=== PATIENT | female | born 1990 | race Caucasian/White ===

== ENCOUNTER 2022-11-30 01:10 | Inpatient (IN) | payer OTHER, SELFPAY ==
[2022-11-30] VITALS (229 sets, daily range): BP systolic 75–149; BP diastolic 48–101; PULSE 70–145; RESP 18; TEMP 36.6–37.7; O2SAT 95–100; BMI 29.2
[2022-11-30 04:09] LABS: Basophils Absolute Auto 0.1 K/mm3 (0.0-0.1); Basophils Percent Auto 0.6 % (0.2-1.2); Eosinophils Absolute Auto 0.1 K/mm3 (0-0.3); Eosinophils Percent Auto 0.8 % (0-4.4); Hematocrit 33.6 % (37.0-47.0); Hemoglobin 11.3 g/dL (12.0-15.0); Immature Granulocyte Absolute 0.16 K/mm3 (0.00-0.031); Immature Granulocyte Percent A 1.2 % (0-0.5); Lymphocytes Absolute Auto 3.02 K/mm3 (0.9-3.2); Lymphocytes Percent Auto 22.7 % (18.3-44.2); Mean Corpuscular HGB Conc 33.6 g/dl (32-36); Mean Corpuscular Hemoglobin 31.6 pg (26-34); Mean Corpuscular Volume 93.9 fl (80-100); Mean Platelet Volume 10.4 fl (7.4-10.4); Monocytes Absolute Auto 0.9 K/mm3 (0.1-0.6); Monocytes Percent Auto 6.9 % (2.6-8.5); Neutrophils Percent Auto 67.8 % (45.5-73.1); Platelet Count Result 230 k/mm3 (150-375); Red Blood Count 3.58 M/mm3 (4.2-5.4); Red Cell Distribution Width 14.2 % (11.5-14.5); White Blood Count 13.3 K/mm3 (4.5-10.0)
--- NOTE | 2022-11-30 04:49 | WPDANESEPP ---
Anes - Eval Pre Procedure Procedure: Labor epidural Date/Time: 11/30/22 04:49 Surgeon: Anny Preop Diagnosis: Abd pain with contractions Pre Op Diagnosis: labor Patient Data Age: 32 Gender: F Height: 1.6 m Weight: 75 kg Last Vital Signs Pulse 83 11/30/22 03:15 BP 129/87 11/30/22 03:15 Allergies Allergy/AdvReac Type Severity Reaction Status Date / Time cranberry Allergy Swelling Verified 10/31/22 14:26 Home Medications Medication Instructions Recorded Confirmed Type prenat.vits,asha,[id number] 1 tablet PO DAILY 10/31/22 10/31/22 History Laboratory Tests 11/30/22 11/30/22 03:59 03:59 WBC 13.3 K/mm3 H K/mm3 (4.5-10.0) RBC 3.58 M/mm3 L M/mm3 (4.2-5.4) Hgb 11.3 g/dL L g/dL (12.0-15.0) Hct 33.6 % L % (37.0-47.0) MCV 93.9 fl fl (80-100) MCH 31.6 pg pg (26-34) MCHC 33.6 g/dl g/dl (32-36) RDW 14.2 % % (11.5-14.5) Plt Count 230 k/mm3 k/mm3 (150-375) MPV 10.4 fl fl (7.4-10.4) Immature Gran % (Auto) 1.2 % H % (0-0.5) Neut % (Auto) 67.8 % % (45.5-73.1) Lymph % (Auto) 22.7 % % (18.3-44.2) [place] % (Auto) 6.9 % % (2.6-8.5) Eos % (Auto) 0.8 % % (0-4.4) Baso % (Auto) 0.6 % % (0.2-1.2) Lymph # (Auto) 3.02 K/mm3 K/mm3 (0.9-3.2) [place] # (Auto) 0.9 K/mm3 H K/mm3 (0.1-0.6) Eos # (Auto) 0.1 K/mm3 K/mm3 (0-0.3) Baso # (Auto) 0.1 K/mm3 K/mm3 (0.0-0.1) Abs Immat Gran (auto) 0.16 K/mm3 H K/mm3 (0.00-0.031) Absolute Neuts (auto) 9.0 K/mm3 H K/mm3 (1.3-6.7) Absolute Nucleated RBC 0.0 K/mm3 K/mm3 (0.0-0.012) Nucleated RBC % 0.0 % % (0.0-0.2) RPR Pending Patient hx anesthesia problems: none Family hx anesthesia problems: none Results Review: All pre-operative results and documents have been reviewed as part of the pre-operative evaluation. [facility] Past Medical History Medical History (Updated 11/30/22 @ 04:50 by Gagandeep Beckford CRNA) Overweight (BMI 25.0-29.9) and not yet delivered Family History Family History Other No pertinent family history Social History Social History Smoking status: Never smoker Second hand tobacco smoke exposure: No Substance use: never Lack of Transportation: No Lack of Food: Never True Current Housing: I Have Housing Concerned About Future Housing: No Difficulty Paying Gas/Electric Bills: No Difficulty Paying for Meds: No Currently Unemployed: No Education: High School Diploma/GED Difficulty w/ Childcare or Family Care: No Spiritual care concerns: No Exam Day of Procedure 11/30/22 04:49 Patient weight: overweight Airway: Mallampati scale class II
[2022-11-30] MEDS: LACTATED RINGERS 1,000 ML 125 ML IV CONT ×2 (04:53→13:46)
[2022-11-30] MEDS: OXYTOCIN 30 UNITS/NS 500 ML 30 UNITS/500 ML BAG 6 UNITS IV CONT (07:18)
--- NOTE | 2022-11-30 08:52 | PM.IMHP ---
H&P: HPI History of Present Illness Date/Time: 11/30/22 08:52 Chief Complaint: Contractions. Narrative: 32 y/o G1 at 40 1/7 weeks here with contractions. uncomplicated. GBS neg. Contractions began last evening. Found to be in labor. Now comfortable with epidural. Review of Systems Review of Systems: All systems reviewed & are unremarkable except as noted in HPI and below PMFSH Past Medical History Medical History Overweight (BMI 25.0-29.9) and not yet delivered Family History Family History Other No pertinent family history Social History Social History Smoking status: Never smoker Second hand tobacco smoke exposure: No Substance use: never Lack of Transportation: No Lack of Food: Never True Current Housing: I Have Housing Concerned About Future Housing: No Difficulty Paying Gas/Electric Bills: No Difficulty Paying for Meds: No Currently Unemployed: No Education: High School Diploma/GED Difficulty w/ Childcare or Family Care: No Spiritual care concerns: No Meds Home Medications and Allergies Home Medications Medication Instructions Recorded Confirmed Type prenat.vits,asha,eqv-fihe-ppldd 1 tablet PO DAILY 10/31/22 10/31/22 History Allergies Allergy/AdvReac Type Severity Reaction Status Date / Time cranberry Allergy Swelling Verified 10/31/22 14:26 Vital Signs Vital Signs - 24 hr 11/30/22 03:15 11/30/22 04:56 11/30/22 05:00 Temperature Pulse Rate 83 84 Blood Pressure 129/87 121/76 Pulse Oximetry 99 11/30/22 05:01 11/30/22 05:02 11/30/22 05:03 Temperature Pulse Rate 90 86 Blood Pressure 118/83 126/84 Pulse Oximetry 99 11/30/22 05:05 11/30/22 05:06 11/30/22 05:08 Temperature Pulse Rate 80 88 Blood Pressure 125/76 137/69 Pulse Oximetry 99 11/30/22 05:10 11/30/22 05:11 11/30/22 05:13 Temperature Pulse Rate 85 81 Blood Pressure 118/75 122/72 Pulse Oximetry 99 11/30/22 05:15 11/30/22 05:16 11/30/22 05:18 Temperature Pulse Rate 82 87 Blood Pressure 122/69 123/70 Pulse Oximetry 98 11/30/22 05:20 11/30/22 05:21 11/30/22 05:23 Temperature Pulse Rate 87 91 Blood Pressure 122/68 119/65 Pulse Oximetry 98 11/30/22 05:25 11/30/22 05:26 11/30/22 05:28 Temperature Pulse Rate 91 94 Blood Pressure 118/67 118/68 Pulse Oximetry 98 11/30/22 05:30 11/30/22 05:31 11/30/22 05:33 Temperature Pulse Rate 90 95 Blood Pressure 116/66 103/58 L Pulse Oximetry 97 11/30/22 05:35 11/30/22 05:36 11/30/22 05:38 Temperature Pulse Rate 97 95 Blood Pressure 99/66 L 104/60 Pulse Oximetry 97 11/30/22 05:40 11/30/22 05:41 11/30/22 05:43 Temperature Pulse Rate 89 96 Blood Pressure 103/65 104/64 Pulse Oximetry 99 11/30/22 05:45 11/30/22 05:46 11/30/22 05:48 Temperature Pulse Rate 82 85 Blood Pressure 109/68 108/63 Pulse Oximetry 96 11/30/22 05:50 11/30/22 05:51 11/30/22 05:53 Temperature Pulse Rate 87 83 Blood Pressure 109/65 108/69 Pulse Oximetry 98 11/30/22 05:55 11/30/22 05:56 11/30/22 05:58 Temperature Pulse Rate 80 86 Blood Pressure 109/66 106/61 Pulse Oximetry 96 11/30/22 06:00 11/30/22 06:01 11/30/22 06:03 Temperature Pulse Rate 85 82 Blood Pressure 105/65 105/67 Pulse Oximetry 96 11/30/22 06:05 11/30/22 06:06 11/30/22 06:08 Temperature Pulse Rate 75 86 Blood Pressure 108/65 105/61 Pulse Oximetry 95 11/30/22 06:10 11/30/22 06:11 11/30/22 06:13 Temperature Pulse Rate 86 85 Blood Pressure 101/64 98/61 L Pulse Oximetry 98 11/30/22 06:15 11/30/22 06:16 11/30/22 06:18 Temperature Pulse Rate 81 89 Blood Pressure 106/64 102/59 L Pulse Oximetry 97 11/30/22 06:20 11/30/22 06:2
[2022-11-30 10:12] LABS: Rapid Plasma Reagin Non-Reactive (NonReactive)
--- NOTE | 2022-11-30 12:03 | PM.OBPNLAB ---
Pain Control Date/time seen: 11/30/22 12:03 Comments: Comfortable. Pelvic Exam Dilation (cm): 7 Effacement (%): 100 station: -1 Contractions Contraction frequency: 3 Status status: Category l Comments: FHR 100, good variability, excellent response to scalp stimulation. Assessment and Plan Pitocin rate (mU/min): 6 Plan: continuous present management
--- NOTE | 2022-11-30 19:01 | PM.OBPRVD ---
OB - Delivery Note Procedure Delivery date: 11/30/22 Procedure: Induction method: None Delivery augmentation: Rupture of Membranes and Pitocin Delivery monitor: External FHT, External Uterine and Internal Uterine Route of delivery: Laceration Description: Vaginal Delivery repair: vicryl (3-0) Specimen: Yes (Cord blood, placenta) Quantitative Blood Loss (ml): 85 Anesthesia type: Epidural Disposition: PACU Complications: None Narrative: 32 y/o G1 at 40 1/7 weeks gestation who presented to the hospital with contractions. Labor was diagnosed. Oxytocin was subsequently administered intravenously for labor augmentation. Amniotomy was performed with return of clear fluid. She received an epidural for pain control. Her labor progressed and her cervix dilated completely. She pushed with good effort and delivered the 's head to the perineum, followed by the body. Meconium-stained fluid was noted on delivery of the body. The nose and mouth were bulb suctioned. After a delay, the cord was clamped and cut. The infant was handed off the field. Cord blood was collected. The placenta delivered spontaneously and was grossly normal in appearance. The usual 3 vessel cord was noted. A distal vaginal laceration was sustained. This was reapproximated using 3 0 Vicryl in running fashion. Excellent hemostasis resulted as did excellent reapproximation of the normal anatomy. Needle and instrument counts were correct. The patient was taken to recovery room in stable condition. The infant went to the nursery in stable condition. I was present and scrubbed for the entire delivery. [place] Baby Date of : 11/30/22 Time of : 18:44 Weeks of gestation at delivery: 40 gender: Male Weight (pounds): 7 Weight (ounces): 3 presentation: vertex position: Right Occiput Posterior Placenta delivery description: Spontaneous and Normal Configuration Cord Vessel Description: 3 Vessels and Delayed Cord Clamping score one minute: 8 score five minutes: 9
--- NOTE | 2022-11-30 19:04 | P.DS_ITS ---
DS: Admitting Diagnosis Discharge Date 12/02/22 Admitting Diagnosis IUP at 40 1/7 Labor DS: Discharge Diagnosis Discharge Diagnosis (1) (normal spontaneous vaginal delivery): Code(s): O80 - Encounter for full-term uncomplicated delivery Status: Acute OB - DS: Summary OB Procedures : None OB Procedures Intrapartum: Spontaneous Vag Delivery OB Procedures: : None Time Spent with Patient Time attestation: Total time spent providing and/or coordinating discharge services: DS: Data Data Completed and Pending Labs on day of discharge: Labs from last 24 hours 11/30/22 11/30/22 11/30/22 03:59 03:59 03:59 WBC 13.3 H RBC 3.58 L Hgb 11.3 L Hct 33.6 L MCV 93.9 MCH 31.6 MCHC 33.6 RDW 14.2 Plt Count 230 MPV 10.4 Immature Gran % (Auto) 1.2 H Neut % (Auto) 67.8 Lymph % (Auto) 22.7 [place] % (Auto) 6.9 Eos % (Auto) 0.8 Baso % (Auto) 0.6 Lymph # (Auto) 3.02 [place] # (Auto) 0.9 H Eos # (Auto) 0.1 Baso # (Auto) 0.1 Abs Immat Gran (auto) 0.16 H Absolute Neuts (auto) 9.0 H Absolute Nucleated RBC 0.0 Nucleated RBC % 0.0 RPR Non-reactive Blood Type A Positive Antibody Screen Negative Discharge Plan Discharge Attending physician on discharge: Nixon Mccormick Discharging Clinician: Nixon Mccormick Patient Disposition: Home, Self-Care Activity: pelvic rest Diet: regular Discharge Instructions: Call or return if temperature above 100.4? F, increased abdominal pain, increased vaginal bleeding or any new problems. Stand Alone Forms: General Discharge Information Follow-up/Referrals: Nixon Mccormikc MD [Physician] - 6 Weeks Discharge Medications: New ibuprofen 600 mg tablet 600 mg PO Q6H PRN (Reason: cramps) Qty: 30 0RF Continued #2 Tablet 1 tablet PO DAILY Date of admission: 11/30/22 01:10 Primary Care Provider: PHYSICIAN,BOARD CERTIFIED ARTS THERAPIST Admitting Provider: Nixon Mccormick Attending physician on admission: Nixon Mccormick Condition: Stable
[2022-11-30] MEDS: OXYTOCIN 30 UNITS/NS 500 ML 30 UNITS/500 ML BAG 125 UNITS IV CONT (19:20)
[2022-11-30] MEDS: WITCH HAZEL 40 PADS 1 PAD TOPICAL (21:16)
[2022-11-30] MEDS: BENZOCAINE 20% AER SPR (*SP) 56 GM CAN 1 SPRAY TOPICAL (21:16)
[2022-11-30] MEDS: IBUPROFEN 600 MG TABLET PO (22:13)
[2022-11-30] MEDS: ACETAMINOPHEN 325 MG TABLET 650 MG PO (22:14)
[2022-12-01 04:00] VITALS: BP 122/84; PULSE 102; RESP 18; TEMP 37; O2SAT 97
[2022-12-01 05:03] LABS: Hematocrit 30.1 % (37.0-47.0); Hemoglobin 10.2 g/dL (12.0-15.0)
--- NOTE | 2022-12-01 07:28 | WPDANLDPN2 ---
Anes-Prog Note L&D Date/Time: 12/01/22 07:28 Comfortable throughout: labor and delivery Neuraxial method: epidural Epidural/Spinal procedure site: clean & non-tender Neuro status: Neuro function grossly intact. Cardiovascular status: normal Respiratory status: normal Airway patency: baseline Mental status: baseline Post-Op hydration status: normal Vital Signs: Last Vital Signs Temp 37.0 C 12/01/22 04:00 Pulse 102 H 12/01/22 04:00 Resp 18 12/01/22 04:00 BP 122/84 12/01/22 04:00 Pulse Ox 97 12/01/22 04:00 O2 Del Method Room Air 11/30/22 23:33 Pain score (VAS): 10 I/O: Intake & Output 11/30/22 11/30/22 12/01/22 15:59 23:59 07:59 Intake Total 1000 Output Total 85 Balance 1000 -85 Post-procedural complaints: none Patient feedback: Patient satisfied with anesthetic care.
[2022-12-01 07:30] VITALS: BP 132/84; PULSE 105; RESP 16; TEMP 37; O2SAT 99
[2022-12-01] MEDS: MULTIVIT/MIN/PREN/FOL AC/IRON TABLET 1 TAB PO (07:43)
[2022-12-01] MEDS: IBUPROFEN 600 MG TABLET PO ×3 (07:43→23:47)
[2022-12-01] MEDS: ACETAMINOPHEN 325 MG TABLET 650 MG PO ×2 (11:59→19:32)
[2022-12-01 12:34] VITALS: BP 127/71; PULSE 98; RESP 16; TEMP 36.7; O2SAT 97
--- NOTE | 2022-12-01 12:49 | PM.OBPNVD ---
OB - PN: Subj Subjective Date/time seen: 12/01/22 12:49 Narrative: Pain OK. Would like circumcision for son. OB - PN: Obj Data Labs 12/01/22 03:36 Labs: Laboratory Results - last 24 hr 12/01/22 03:36 Hgb 10.2 L Hct 30.1 L OB - PN A/P Plan Comments: A: PPD#1, doing well. P: Reviewed circ. Routine care. Exam Psych: Other: AVSS ABD soft, nontender, fundus firm EXT nontender
--- NOTE | 2022-12-01 14:36 | PC.NURSE ---
[id number] Introductions were made, then consulted with patient to assess needs related to . Mother led the conversation with her?plans to feed?her infant and the?experience so far. Mother voiced understanding of information and requested assistance since she was unable to wake for . RN visualized infant cradled, swaddled, hat on in mother's arms not latched, mouth closed, nipple resting at the lips and a small dark red discoloration above the nipple on the areola. Mother consents to receive education on how to stimulate for wakefulness to breastfeed. Mother works well with her with encouragement and education; however, states she is worried she will hurt her infant when moving him around. Encouraged understanding of the benefits of skin to skin (demonstrating unwrapping and placing upright on her chest), stimulating with massage touch, changing positions to encourage wakefulness, how to watch for early feeding cues, hand expression, feeding infant expressed colostrum, responsive feeding, feeding on demand (aiming for 8-12 times in 24 hours, about every 2-3 hours), milk production, building/maintaining a milk supply, duration of feeding, signs of adequate intake/output and how to record on the feeding sheet. Infants wet diaper was changed to encourage wakefulness. Reviewed positioning and ear, shoulder, hip alignment, supporting the breast to facilitate a deep latch, asymmetrical latch (off-center), leading with the chin with a big, open, wide gape and body close to mother. latched optimally to the right breast in football position. Education given to the parents of how to visualize suck/swallow ratios and listen for drinking at the breast. Infant was able to maintain latch without discomfort to mother for 10 minutes, then detached without any nipple misshaping. Nipple care reviewed with optimal latch and good positioning. Infant was placed skin to skin and mother demonstrated learning for stimulating for wakeful . was latched to the left breast using football position after feeding cues were visualized. Reminding mother of comfort measures of healing with a warm and wet washcloth to rinse breast, then leave open to air-dry as needed. Reviewed good handwashing when or touching the breast/nipples to prevent infection. Resources used to facilitate learning were used with the tool. Mother voiced understanding of skin to skin, stimulating with massage touch, responsive feedings, hand expressed colostrum, talking to infant to encourage if it has been 2 -2.5 hours since the start of the last , to call if does not latch, or if there is discomfort with . Resources provided for inpatient/outpatient with the mom/baby guide and using the call light with asking for assistance by name on the white board. Parents voiced understanding of information, demonstrated learning and will call if there is a request for assistance. Reported to the primary RN.
[2022-12-01 15:45] VITALS: BP 141/88; PULSE 100; RESP 16; TEMP 36.9; O2SAT 100
[2022-12-01] MEDS: WITCH HAZEL 40 PADS 1 PAD TOPICAL (16:17)
[2022-12-01 19:56] VITALS: BP 120/85; PULSE 85; RESP 18; TEMP 37; O2SAT 97
[2022-12-02 08:05] VITALS: BP 132/82; PULSE 110; RESP 16; TEMP 37.3; O2SAT 99
[2022-12-02] MEDS: IBUPROFEN 600 MG TABLET PO (08:11)
[2022-12-02] MEDS: MULTIVIT/MIN/PREN/FOL AC/IRON TABLET 1 TAB PO (08:11)
--- NOTE | 2022-12-02 08:45 | PM.OBPNVD ---
OB - PN: Subj Subjective Date/time seen: 12/02/22 08:45 Narrative: Pain OK. Would like to go home. OB - PN: Obj Data Labs 12/01/22 03:36 OB - PN A/P Plan Comments: A: PPD#2, doing well. P: Home to f/u 6 weeks. Exam Psych: Other: AVSS ABD soft, nontender, fundus firm EXT nontender
--- NOTE | 2022-12-02 09:10 | PC.NURSE ---
Patient viewed the discharge video Mother & Baby Care, The First Two Weeks . Patient was given the opportunity and encouraged to ask questions. Patient verbalized understanding of information shared and has been given the mother/baby guide for home reference.
[2022-12-03 09:27] VITALS: BP 127/83; PULSE 88; RESP 18; TEMP 37.3; O2SAT 98
== END 2022-12-02 11:15 | disposition home or self-care (01) | DRG 807 ==
LOC: ANHLDR 19:06 → ANHOB2 21:39
PROVIDERS: Admitting Provider Obstetrics & Gynecology; Visit Provider Obstetrics & Gynecology
DX: O76 Abnormality in fetal heart rate and rhythm complicating labor and delivery (principal); Z37.0 Single live birth; O70.0 First degree perineal laceration during delivery; Z3A.40 40 weeks gestation of pregnancy
CPT/HCPCS: 36415; 85014; 85018; 85025; 86592; 86850; 86900; 86901; 88307; A9270; J2590; J2795; J7120

== ENCOUNTER 2023-07-31 17:46 | Emergency (ER) | payer SELFPAY ==
--- NOTE | ~2023-07-31 | US_ITS ---
EXAMINATION: US OB <=14 wk fetus w TV INDICATION: vaginal bleeding, eval for ectopic TECHNIQUE: Sonography of the pelvis was performed by transabdominal and transvaginal techniques. COMPARISON: None. RESULT: Uterus: 7.4 x 3.4 x 6.0 cm. Anteverted. 8 mm hypoechoic lesion in the posterior uterine body with vas cularity, likely intramural fibroid. Intrauterine gestational sac: Not seen. Right ovary: 2.6 x 2.3 x 1.8 cm. Vascular flow is present. 1.7 cm right ovarian lesion, slightly h ypoechoic to the ovary with the suggestion of internal flow. Left ovary: 2.7 x 1.7 x 2.0 cm. Vascular flow is present. No adnexal mass. Pelvis free fluid: None. IMPRESSION: No intrauterine gestational sac identified. No sonographic evidence of ectopic . 1.7 cm solid right ovarian lesion, recommend nonemergent but timely pelvic MR for further evaluation. Reviewed, dictated and finalized at location K. IMPRESSION: No intrauterine gestational sac identified. No sonographic evidence of ectopic . 1.7 cm solid right ovarian lesion, recommend nonemergent but timely pelvic MR f or further evaluation.
[2023-07-31 17:48] VITALS: BP 125/80; PULSE 55; RESP 16; TEMP 36.3; O2SAT 95
--- NOTE | 2023-07-31 18:43 | ED.FEMALEGU ---
HPI - Female Genitourinary General Chief complaint: Vaginal Bleeding Stated complaint: VAG BLEEDING 5 WEEKS PREG Time Seen by Provider: 07/31/23 17:52 History of Present Illness HPI Narrative: Patient is a 33-year-old female presenting with possible miscarriage. Patient states that she is approximately 5 weeks . States that she had some vaginal spotting last week which then reoccurred today. States that then she passed a clot and had maddy blood. Reports some abdominal cramping earlier but denies any pain currently. Has not seen her OB or had an ultrasound given how early it is. Reports some nausea but no vomiting. No dysuria. Denies further complaints. Related Data Home Medications Medication Instructions Recorded Confirmed prenat.vits,asha,yhr-syvp-pkxtf 1 tablet PO DAILY 10/31/22 10/31/22 Allergies Allergy/AdvReac Type Severity Reaction Status Date / Time cranberry Allergy Swelling Verified 10/31/22 14:26 Review of Systems Review of Systems: All systems reviewed & are unremarkable except as noted in HPI and below PMFSH Past Medical History Medical History Overweight (BMI 25.0-29.9) and not yet delivered Family History Family History Other No pertinent family history Social History Social History Smoking status: Never smoker Second hand tobacco smoke exposure: No Substance use: never Lack of Transportation: No Lack of Food: Never True Current Housing: I Have Housing Concerned About Future Housing: No Difficulty Paying Gas/Electric Bills: No Difficulty Paying for Meds: No Currently Unemployed: No Education: High School Diploma/GED Difficulty w/ Childcare or Family Care: No Spiritual care concerns: No Exam Narrative: GENERAL: Well-appearing, no acute distress, pleasant and cooperative HEAD: Normocephalic, atraumatic. EYES: PERRLA and EOMI. ENT: Mucous membranes moist. NECK: Supple. CHEST: No respiratory distress. HEART: Regular rate and rhythm ABDOMEN: Soft, nontender, nondistended EXTREMITIES: Normal range of motion. SKIN: Warm, dry, no rash. NEURO: No focal deficits. Alert and oriented x3. PSYCH: Normal mood and affect. Course Vital Signs Vital signs: Vital Signs Temperature 97.4 F L 07/31/23 17:48 Pulse Rate 55 L 07/31/23 17:48 Respiratory Rate 16 07/31/23 17:48 Blood Pressure 125/80 07/31/23 17:48 Pulse Oximetry 95 07/31/23 17:48 Oxygen Delivery Room Air 07/31/23 17:48 Temperature 97.4 F L 07/31/23 17:48 Pulse Rate 81 07/31/23 18:50 Respiratory Rate 14 07/31/23 18:50 Blood Pressure 115/81 07/31/23 18:50 Pulse Oximetry 100 07/31/23 18:50 Oxygen Delivery Room Air 07/31/23 17:48 MDM - Female Genitourinary MDM Narrative Medical decision making narrative: Patient is a 33-year-old female presenting with vaginal bleeding in the setting of early . Vitals are stable. Exam remarkable for the above. Blood work with minimally elevated beta hcg. Hemoglobin is stable. UA not infected. Ultrasound without evidence of intrauterine or ectopic . Discussed with the patient that this likely represents an early miscarriage. Advised close OB f/u as they may want to trend hcg, Strict return precautions given. Discharged in stable condition. Differential Diagnosis Differential diagnosis: Likely urinary tract infection, dysmenorrhea and other (miscarriage) Medical Records Attestation: I reviewed the patient's medical records. Lab Data Attestation: I reviewed the patient's lab results. 07/31/23 18:45 07/31/23 18:45 Labs: Lab Results 07/31/23 Range/Units 18:45 WBC 7.2 (4.5-10.0) K/mm3 RBC 3.76 L (4.2-5.4) M/mm3 Hgb 11.8 L (12.0-15.0) g/dL Hct 35.6 L (37.0-47.0) % MCV
[2023-07-31 18:50] VITALS: BP 115/81; PULSE 81; RESP 14; O2SAT 100
[2023-07-31 18:54] LABS: Bacteria Urine None Seen /hpf; Basophils Percent Auto 0.6 % (0.2-1.2); Eosinophils Absolute Auto 0.1 K/mm3 (0-0.3); Eosinophils Percent Auto 1.7 % (0-4.4); Hematocrit 35.6 % (37.0-47.0); Hemoglobin 11.8 g/dL (12.0-15.0); Immature Granulocyte Absolute 0.01 K/mm3 (0.00-0.031); Immature Granulocyte Percent A 0.1 % (0-0.5); Lymphocytes Absolute Auto 2.28 K/mm3 (0.9-3.2); Lymphocytes Percent Auto 31.9 % (18.3-44.2); Mean Corpuscular HGB Conc 33.1 g/dl (32-36); Mean Corpuscular Hemoglobin 31.4 pg (26-34); Mean Corpuscular Volume 94.7 fl (80-100); Mean Platelet Volume 9.1 fl (7.4-10.4); Monocytes Absolute Auto 0.5 K/mm3 (0.1-0.6); Monocytes Percent Auto 6.4 % (2.6-8.5); Neutrophils Absolute Auto 4.2 K/mm3 (1.3-6.7); Neutrophils Percent Auto 59.3 % (45.5-73.1); Non Pathogenic Casts 0-2; Platelet Count Result 292 k/mm3 (150-375); RBC Urine 0-2 /hpf (0-2); Red Blood Count 3.76 M/mm3 (4.2-5.4); Red Cell Distribution Width 12.2 % (11.5-14.5); Squamous Epithelial Cell Urine None seen /hpf (Few); WBC Urine 0-5 /hpf; White Blood Count 7.2 K/mm3 (4.5-10.0)
[2023-07-31 19:01] LABS: Appearance Urine Clear (Clear); Bilirubin Urine Negative (Negative); Blood Urine 1+ (Negative); Color Urine Yellow (Yellow); Glucose Urine UA Negative (Negative); Ketones Urine Negative (Negative); Leukocyte Esterase Ur Negative LEU/UL (Negative); Nitrate Urine Negative (Negative); Protein Urine Negative (Negative); Urobilinogen Urine 0.2 mg/dL (<2.0); pH Urine 6.5 (5.0-9.0)
[2023-07-31 19:03] LABS: Add Urine Microscopic? YES
[2023-07-31 19:18] LABS: Anion Gap 6 mmol/L (8-16); Blood Urea Nitrogen 12 mg/dL (7-17); Calcium 9.1 mg/dL (8.4-10.2); Carbon Dioxide 25 mmol/L (22-30); Chloride 106 mmol/L (98-107); Estimated CRCL calculation 94 ml/min; Estimated Glomerular Filt Rate > 60; Glucose 104 mg/dL (65-110); Potassium 3.5 mmol/L (3.4-5.0); Sodium 137 mmol/L (137-145)
--- NOTE | 2023-07-31 19:24 | PC.NURSE ---
This RN assumed care of patient. THis RN took patient report from RAMAN Augustin.
[2023-07-31 19:35] LABS: Beta HCG Quantitative 32.29 mIU/ML
== END 2023-07-31 20:55 | disposition home or self-care (01) ==
PROVIDERS: Emergency Provider Emergency Medicine; PCP Obstetrics & Gynecology
DX: O03.9 Complete or unspecified spontaneous abortion without complication (principal); E66.3 Overweight; Z68.23 Body mass index [BMI] 23.0-23.9, adult; N83.8 Other noninflammatory disorders of ovary, fallopian tube and broad ligament
CPT/HCPCS: 36415; 76801; 76817; 80048; 81001; 81025; 84702; 85025; 86850; 86900; 86901; 99284

== ENCOUNTER 2024-07-11 11:59 | Outpatient (RCR) | payer BC, SELFPAY ==
--- NOTE | ~2024-07-11 | US_ITS ---
COMPLETE AND LIMITED MATERNAL ULTRASOUND (Doppler ultrasound interrogation techniques used as n eeded for this exam.) Ordering provider: Nixon Mccormick MD History: . post dates;CASEY,growth,presentation . Comparison: None. Findings: : Single intrauterine fetus with heart rate measured at 158 bpm which is within normal limits. Presentation: Vertex. Lie: Longitudinal. Placenta: Maternal left. Amniotic fluid: Normal. CASEY: 6.4 cm. Largest pocket is 4.7 cm. -- BIOMETRICS: BPD: 92 mm = 37 weeks and 3 days. HC: 330.3 mm = 37 weeks and 4 days FL: 75.5 mm = 38 weeks and 4 days AC: 333.2 mm = 37 weeks and 2 days. HC/AC: 0.99 FL/BPD: 82.07 FL/AC: 22.66 Mean US age is 37 weeks 5 days for an LEESA on July 27, 2024. Extrapolated weight is 3261 gm. EFW/GP 21.8%. IMPRESSION: Single live fetus of Vertex presentation. Reviewed, dictated and finalized at location A.
[2024-07-11 13:34] VITALS: BP 113/70; PULSE 84
== END 2024-07-11 12:30 | disposition home or self-care (01) ==
LOC: ANHOBOP 11:59
PROVIDERS: PCP Nurse Practitioner Family; Visit Provider Obstetrics & Gynecology
DX: O48.0 Post-term pregnancy (principal); Z3A.40 40 weeks gestation of pregnancy
CPT/HCPCS: 59025; 76816

== ENCOUNTER 2024-07-11 23:51 | Inpatient (IN) | payer BC, SELFPAY ==
[2024-07-12] VITALS (80 sets, daily range): BP systolic 97–137; BP diastolic 58–85; PULSE 62–132; RESP 16–18; TEMP 36.4–37.2; O2SAT 89–100; BMI 28.9
[2024-07-12] MEDS: LACTATED RINGERS 1,000 ML 125 ML IV CONT ×2 (00:42→05:00)
--- NOTE | 2024-07-12 00:47 | LDADM ---
This patient, Farzana Lane, was admitted to Labor/Delivery/Recovery 107 on 07/11/24 at 23:51. Plans for labor, pain management and were discussed with patient. Patient/family oriented to hospital policies and general routines including ID bracelet, bed and alarms, visiting hours, pain management, procedures, bathroom and other care routines, personal items, smoking policy, room service/diet and guest tray routines, security routines, and visiting hours. Patient/Family are encouraged to report perceived risks to care and to ask questions if they do not understand what they are told or what they should do. See [facility]BI[facility] for further documentation.
[2024-07-12 00:48] LABS: Basophils Absolute Auto 0.1 K/mm3 (0.0-0.1); Basophils Percent Auto 0.4 % (0.2-1.2); Eosinophils Absolute Auto 0.1 K/mm3 (0-0.3); Eosinophils Percent Auto 0.7 % (0-4.4); Hemoglobin 11.4 g/dL (12.0-15.0); Immature Granulocyte Absolute 0.13 K/mm3 (0.00-0.031); Immature Granulocyte Percent A 1.1 % (0-0.5); Lymphocytes Absolute Auto 2.67 K/mm3 (0.9-3.2); Lymphocytes Percent Auto 21.9 % (18.3-44.2); Mean Corpuscular HGB Conc 33.5 g/dl (32-36); Mean Corpuscular Hemoglobin 31.4 pg (26-34); Mean Corpuscular Volume 93.7 fl (80-100); Mean Platelet Volume 10.1 fl (7.4-10.4); Monocytes Percent Auto 8.4 % (2.6-8.5); Neutrophils Absolute Auto 8.2 K/mm3 (1.3-6.7); Neutrophils Percent Auto 67.5 % (45.5-73.1); Platelet Count Result 274 k/mm3 (150-375); Red Blood Count 3.63 M/mm3 (4.2-5.4); Red Cell Distribution Width 13.2 % (11.5-14.5); White Blood Count 12.2 K/mm3 (4.5-10.0)
[2024-07-12 01:16] LABS: Rapid Plasma Reagin Non-Reactive (NonReactive)
[2024-07-12 01:38] LABS: HIV 1/2 Ab P24 Ag Result Negative (Negative)
--- NOTE | 2024-07-12 02:36 | WPDANESEPP ---
Anes - Eval Pre Procedure Procedure: Labor Epidural Date/Time: 07/12/24 02:36 Surgeon: Anny Preop Diagnosis: Labor Pain Pre Op Diagnosis: Contractions Patient Data Age: 34 Gender: F Height: 1.6 m Weight: 74 kg Last Vital Signs Temp 36.4 C 07/12/24 00:30 Pulse 83 07/12/24 02:31 BP 108/75 07/12/24 02:31 Pulse Ox 94 07/12/24 02:35 O2 Del Method Room Air 07/12/24 00:47 Allergies Allergy/AdvReac Type Severity Reaction Status Date / Time cranberry Allergy Swelling Verified 06/12/24 13:30 Home Medications Medication Instructions Recorded Confirmed Type prenat.vits,asha,fho-[id number] 1 tablet PO DAILY 10/31/22 06/12/24 History Laboratory Tests 07/12/24 00:36 WBC 12.2 H K/mm3 (4.5-10.0) RBC 3.63 L M/mm3 (4.2-5.4) Hgb 11.4 L g/dL (12.0-15.0) Hct 34.0 L % (37.0-47.0) MCV 93.7 fl (80-100) MCH 31.4 pg (26-34) MCHC 33.5 g/dl (32-36) RDW 13.2 % (11.5-14.5) Plt Count 274 k/mm3 (150-375) MPV 10.1 fl (7.4-10.4) Immature Gran % (Auto) 1.1 H % (0-0.5) Neut % (Auto) 67.5 % (45.5-73.1) Lymph % (Auto) 21.9 % (18.3-44.2) [place] % (Auto) 8.4 % (2.6-8.5) Eos % (Auto) 0.7 % (0-4.4) Baso % (Auto) 0.4 % (0.2-1.2) Lymph # (Auto) 2.67 K/mm3 (0.9-3.2) [place] # (Auto) 1.0 H K/mm3 (0.1-0.6) Eos # (Auto) 0.1 K/mm3 (0-0.3) Baso # (Auto) 0.1 K/mm3 (0.0-0.1) Abs Immat Gran (auto) 0.13 H K/mm3 (0.00-0.031) Absolute Neuts (auto) 8.2 H K/mm3 (1.3-6.7) Absolute Nucleated RBC 0.000 K/mm3 (0.0-0.012) Nucleated RBC % 0.0 % (0.0-0.2) RPR Non-reactive (NonReactive) HIV 1&2 Ab/P24 Ag 4thGn Negative (Negative) Blood Type A Positive Antibody Screen Negative : gestational age (, LEESA 07/11/24) Patient hx anesthesia problems: none Family hx anesthesia problems: none Results Review: All pre-operative results and documents have been reviewed as part of the pre-operative evaluation. [facility] Past Medical History Medical History Overweight (BMI 25.0-29.9) and not yet delivered Family History Family History Other No pertinent family history Social History Social History Smoking status: Never smoker Second hand tobacco smoke exposure: No Substance use: never Do You Feel Safe in your Home?: Yes Lack of Transportation: No Lack of Food: Never True Current Housing: I Have Housing Concerned About Future Housing: No Difficulty Paying Gas/Electric Bills: No Difficulty Paying for Meds: No Currently Unemployed: No Education: High School Diploma/GED Difficulty w/ Childcare or Family Care: No Spiritual care concerns: No Exam Day of Procedure 07/12/24 02:36 Patient weight: normal Heart: regular rate and rhythm Lungs: normal air movement Airway: Mallampati scale class II Neurological: alert and oriented
--- NOTE | 2024-07-12 06:29 | PM.IMHP ---
H&P: HPI History of Present Illness Date/Time: 07/12/24 06:29 Chief Complaint: Returned Narrative: 34-year-old 3 para 1 whose EDC is 07/11/2024 confirmed by 6 week ultrasound presents at 40 weeks gestation in active labor she is negative for group B strep in the has been uncomplicated [facility] Past Medical History Medical History Overweight (BMI 25.0-29.9) and not yet delivered Family History Family History Other No pertinent family history Social History Social History Smoking status: Never smoker Second hand tobacco smoke exposure: No Substance use: never Do You Feel Safe in your Home?: Yes Lack of Transportation: No Lack of Food: Never True Current Housing: I Have Housing Concerned About Future Housing: No Difficulty Paying Gas/Electric Bills: No Difficulty Paying for Meds: No Currently Unemployed: No Education: High School Diploma/GED Difficulty w/ Childcare or Family Care: No Spiritual care concerns: No Meds Home Medications and Allergies Home Medications Medication Instructions Recorded Confirmed Type prenat.vits,asha,[id number] 1 tablet PO DAILY 10/31/22 06/12/24 History Allergies Allergy/AdvReac Type Severity Reaction Status Date / Time cranberry Allergy Swelling Verified 06/12/24 13:30 Vital Signs Vital Signs - 24 hr 07/12/24 00:47 07/12/24 01:11 07/12/24 01:16 Temperature Pulse Rate 86 83 Blood Pressure 123/81 117/74 Pulse Oximetry Oxygen Delivery Room Air 07/12/24 00:30 07/12/24 01:31 07/12/24 01:45 Temperature 97.6 F Pulse Rate 93 Blood Pressure 137/76 Pulse Oximetry 99 Oxygen Delivery 07/12/24 01:47 07/12/24 01:50 07/12/24 01:55 Temperature Pulse Rate 85 89 Blood Pressure 103/60 117/71 Pulse Oximetry 97 98 Oxygen Delivery 07/12/24 01:57 07/12/24 02:00 07/12/24 02:01 Temperature Pulse Rate 94 83 Blood Pressure 120/60 119/70 Pulse Oximetry 96 Oxygen Delivery 07/12/24 02:04 07/12/24 02:05 07/12/24 02:07 Temperature Pulse Rate 85 86 Blood Pressure 115/71 115/65 Pulse Oximetry 95 Oxygen Delivery 07/12/24 02:10 07/12/24 02:13 07/12/24 02:15 Temperature Pulse Rate 79 89 Blood Pressure 116/72 108/69 Pulse Oximetry 94 94 Oxygen Delivery 07/12/24 02:16 07/12/24 02:20 07/12/24 02:22 Temperature Pulse Rate 97 85 79 Blood Pressure 103/63 114/58 L 111/70 Pulse Oximetry 94 Oxygen Delivery 07/12/24 02:25 07/12/24 02:30 07/12/24 02:31 Temperature Pulse Rate 83 83 Blood Pressure 112/78 108/75 Pulse Oximetry 93 93 Oxygen Delivery 07/12/24 02:35 07/12/24 02:40 07/12/24 02:45 Temperature Pulse Rate Blood Pressure Pulse Oximetry 94 94 93 Oxygen Delivery 07/12/24 02:50 07/12/24 02:55 07/12/24 03:00 Temperature Pulse Rate Blood Pressure Pulse Oximetry 94 99 96 Oxygen Delivery 07/12/24 03:01 07/12/24 03:05 07/12/24 03:10 Temperature Pulse Rate 80 Blood Pressure 116/66 Pulse Oximetry 93 93 Oxygen Delivery 07/12/24 03:15 07/12/24 03:20 07/12/24 03:25 Temperature Pulse Rate Blood Pressure Pulse Oximetry 97 94 96 Oxygen Delivery 07/12/24 03:30 07/12/24 03:31 07/12/24 03:35 Temperature Pulse Rate 75 Blood Pressure 113/76 Pulse Oximetry 96 96 Oxygen Delivery 07/12/24 03:40 07/12/24 03:45 07/12/24 03:50 Temperature Pulse Rate Blood Pressure Pulse Oximetry 95 96 98 Oxygen Delivery 07/12/24 03:55 07/12/24 04:00 07/12/24 04:01 Temperature Pulse Rate 79 Blood Pressure 112/71 Pulse Oximetry 97 97 Oxygen Delivery 07/12/24 04:05 07/12/24 04:10 07/12/24 04:15 Temperature Pulse Rate Blood Pressur
--- NOTE | 2024-07-12 06:32 | P.PCNOB_ITS ---
OB - Vaginal Delivery Note Procedure Delivery date: 07/12/24 Induction method: None Delivery monitor: External FHT and External Uterine Route of delivery: Episiotomy description: None Laceration Description: Perineal - 1st Degree Delivery repair: vicryl Specimen: No Quantitative Blood Loss (ml): 61 Anesthesia type: Epidural Disposition: Floor Complications: No immediate complications Narrative: patient was admitted at term in active labor had been uncomplicated. She was negative for group B strep she progressed to completely dilated then had extended period of heart tones in the 50s and 60s which was treated by repositioning oxygenation IV fluid a dose of terbutaline. As I arrived the cervix was complete spontaneous rupture membranes that happened prior. The patient pushed delivered head spontaneously in the ALYSSA position. Anterior posterior shoulder delivered spontaneously. Cord clamped and cut passed off the table given Apgars of 9 and 9. Placenta delivered intact spontaneously 20 of Pitocin placed IV to help firm the uterus after inspecting lateral sidewall small first-degree sulcal tear was noted and a emirey-[id number]-[id number] placed blood loss was estimated at61cc. There were no immediate complications [place] Baby Date of : 07/12/24 Time of : 06:04 Gestational Age by Date: 40 presentation: vertex position: Right Occiput Anterior Placenta delivery description: Spontaneous Cord Vessel Description: 3 Vessels score one minute: 9 score five minutes: 9
[2024-07-12] MEDS: OXYTOCIN 30 UNITS/NS 500 ML 30 UNITS/500 ML BAG 125 UNITS IV CONT (07:00)
[2024-07-12] MEDS: BENZOCAINE 20% AER SPR (*SP) 56 GM CAN 1 SPRAY TOPICAL (08:38)
[2024-07-12] MEDS: WITCH HAZEL 40 PADS 1 PAD TOPICAL (08:38)
[2024-07-12] MEDS: MULTIVIT/MIN/PREN/FOL AC/IRON TABLET 1 TAB PO (09:41)
[2024-07-12] MEDS: IBUPROFEN 600 MG TABLET PO ×2 (10:32→19:24)
--- NOTE | 2024-07-12 11:15 | PC.NURSE ---
Introductions were made, then consulted with patient to assess needs related to . Discussed with mother her?plans to feed?her and the?experience so far. Resources provided for inpatient services with the feeding sheet, mom/baby guide and name written on the communication board. Mother voiced understanding of information and will call if there is a request for assistance. Reported to the Primary RN.
--- NOTE | 2024-07-12 11:28 | OBPPTRN ---
Patient transferred to post room #282 via (wheelchair). Support person present. Oriented to unit, room, information board, rooming in, admission packet and security measures. Patient verbalizes understanding.
[2024-07-12] MEDS: ACETAMINOPHEN 325 MG TABLET 650 MG PO ×2 (13:37→20:45)
[2024-07-13] MEDS: IBUPROFEN 600 MG TABLET PO (00:52)
[2024-07-13 03:40] VITALS: BP 118/83; PULSE 78; RESP 18; TEMP 36.6; O2SAT 98
[2024-07-13 04:50] LABS: Hematocrit 31.8 % (37.0-47.0); Hemoglobin 10.2 g/dL (12.0-15.0)
[2024-07-13] MEDS: ACETAMINOPHEN 325 MG TABLET 650 MG PO (05:10)
--- NOTE | 2024-07-13 05:19 | PM.DS ---
DS: Admitting Diagnosis Discharge Date 07/13/2024 Admitting Diagnosis term DS: Discharge Diagnosis Discharge Diagnosis (1) Term : Code(s): Z34.90 - Encounter for supervision of normal , unspecified, unspecified trimester Status: Acute DS: Summary Hospital Course Reason for hospitalization: patient was admitted in the early a.m. of 07/12/2024 and underwent spontaneous vaginal delivery with epidural anesthesia Hospital Course: the patient's hospital course unremarkable. She remained afebrile. She was up, eating regular diet, ambulating, voiding without difficulty, and generally without complaints. Time Spent with Patient Time attestation: Total time spent providing and/or coordinating discharge services: Exam Const: General: cooperative, healthy appearing and comfortable Nutritional Appearance: average body habitus Orientation/consciousness: oriented to person, oriented to place and oriented to time HENMT: Head: normal to inspection Resp: Effort & Inspection: normal respiratory effort Cardio: Rate: regular rate Rhythm: regular rhythm Heart sounds: S1 normal heart sound present and S2 normal heart sound present DS: Data Data Completed and Pending Labs on day of discharge: Labs from last 24 hours 07/13/24 03:47 Hgb 10.2 L Hct 31.8 L Discharge Plan Discharge Attending physician on discharge: Honorio Davis Discharging Clinician: Honorio Davis Patient Disposition: Home, Self-Care Activity: may shower, no straining and pelvic rest Diet: heart healthy Wound Care Instructions: follow printed instructions Patient Instructions: Antibiotic Form Stand Alone Forms: General Discharge Information Follow-up/Referrals: Nixon Mccormick MD [Physician] - Discharge Medications: Continued prenat.vits,asha,[id number] Tablet 1 tablet PO DAILY Date of admission: 07/11/24 23:51 Primary Care Provider: OmarJoyce Admitting Provider: Nixon Mccormick Attending physician on admission: Nixon Mccormick Condition: Stable
--- NOTE | 2024-07-13 05:23 | PM.OBPNVD ---
OB - PN: Subj Subjective Date/time seen: 07/13/24 05:23 Patient comments: no complaints and pain well controlled baby status: doing well and nursing well OB - PN: Obj Data Labs 07/13/24 03:47 Labs: Laboratory Results - last 24 hr 07/13/24 03:47 Hgb 10.2 L Hct 31.8 L OB - PN A/P Plan day: 1 Plan: routine care, discharge home and follow up 6 weeks Time Spent With Patient Time: Total time spent is greater than 50% in coordination of care (as documented) at patient's floor/unit and/or counseling patient: Time with patient: less than 15 minutes Exam Const: General: cooperative, healthy appearing and comfortable Nutritional Appearance: average body habitus Orientation/consciousness: oriented to person, oriented to place and oriented to time Resp: Effort & Inspection: normal respiratory effort Cardio: Rate: regular rate Rhythm: regular rhythm Heart sounds: S1 normal heart sound present and S2 normal heart sound present GI: Inspection: normal to inspection ( Fundus firm below the umbilicus)
[2024-07-13 07:45] VITALS: BP 121/69; PULSE 82; RESP 16; TEMP 36.8; O2SAT 96
[2024-07-13] MEDS: MULTIVIT/MIN/PREN/FOL AC/IRON TABLET 1 TAB PO (09:37)
[2024-07-14 10:22] VITALS: BP 120/84; PULSE 68; RESP 18; TEMP 36.7; O2SAT 100
== END 2024-07-13 11:40 | disposition home or self-care (01) | DRG 807 ==
LOC: ANHLDR 07-12 00:42 → ANHOB2 07-13 05:21 → ANHLDR 07-14 08:18 → ANHOB2 07-14 08:18
PROVIDERS: Admitting Provider Obstetrics & Gynecology; PCP Nurse Practitioner Family; Visit Provider Obstetrics & Gynecology
DX: O70.0 First degree perineal laceration during delivery (principal); Z37.0 Single live birth; Z3A.40 40 weeks gestation of pregnancy
CPT/HCPCS: 36415; 59025; 76816; 85014; 85018; 85025; 86592; 86703; 86850; 86900; 86901; A9270; G0432; J2590; J2795; J7120